=== PATIENT | female | born 1970 | race Hispanic/Latino ===

== ENCOUNTER 2018-08-09 17:23 | Emergency (ER) | payer OTHER ==
[2018-08-09 17:35] VITALS: BP 127/88; PULSE 91; RESP 20; TEMP 98; O2SAT 98
[2018-08-09] MEDS ORDERED: Lidocaine PF 2% (5 ml) Inj (For Cardiac Arrhy) IJ ONE (18:01)
[2018-08-09] MEDS ORDERED: Tdap Vaccine 0.5 ml Vial (10-64 yrs) IM ONE ×2 (18:01→18:17)
[2018-08-09] MEDS ORDERED: Amoxicillin-Clav 875-125 mg Tab PO STA (18:09)
[2018-08-09] MEDS ORDERED: Bacitracin 500 Units/gm Oint Foilpak UD TOP STA (18:34)
--- NOTE | 2018-08-09 18:34 | ED PDOC ---
HPI: Skin/Bite Injury Time Seen by Provider: 08/09/18 17:35 Chief Complaint (Nursing): Bite Chief Complaint (Provider): Bite History Per: Patient History/Exam Limitations: no limitations Onset/Duration Of Symptoms: Mins Current Symptoms Are (Timing): Still Present Additional Complaint(s): Mary Ellen Toure is a 48 year old female with no past medical history who is presenting to the ED for evaluation of facial wound s/p dog bite just prior to arrival. Patient reports that she bent over to pet a strangers dog and it jumped up and bit her. She has the pet owners information, however is refusing to divulge it in fear that something will happen to the dog. Patient sustained a lip laceration and a laceration to left eye orbit. She states that she has not taken any medications prior to arrival and the diamond finishing supervisor of the dog at the scene claimed that the dog was up to date on its vaccinations. PMD: none provided Tetanus: Not UTD - Animal Bite Description Of The Attack: Tried To Pet Animal Description Of The Animal: Unknown (stranger's dog) Animal's Immunization Status: UTD (as per diamond finishing supervisor) Past Medical History Reviewed: Historical Data, Nursing Documentation, Vital Signs Vital Signs: Last Vital Signs Temp 98.0 F 08/09/18 17:31 Pulse 91 08/09/18 17:31 Resp 20 08/09/18 17:31 BP 127/88 08/09/18 17:31 Pulse Ox 98 08/09/18 22:18 - Medical History PMH: No Chronic Diseases - Surgical History Surgical History: Tonsillectomy - Family History Family History: States: Unknown Family Hx - Social History Current smoker - smoking cessation education provided: No Alcohol: None Drugs: Denies - Home Medications Home Medications: Ambulatory Orders Medication Instructions Recorded Amoxicillin/Clavulanate [Augmentin 1 tab PO BID #14 tab 08/09/18 875 MG-125 MG] Bacitracin Ointment [Bacitracin] 1 applic TOP BID #1 tube 08/09/18 Naproxen 500 mg PO BID PRN #20 tab 08/09/18 - Allergies Allergies/Adverse Reactions: Allergies Allergy/AdvReac Type Severity Reaction Status Date / Time No Known Allergies Allergy Verified 08/09/18 17:31 Review of Systems ROS Statement: Except As Marked, All Systems Reviewed And Found Negative Constitutional: Positive for: Other (facial laceration) Eyes: Positive for: Other (laceration to eye orbit) Physical Exam - Reviewed Nursing Documentation Reviewed: Yes Vital Signs Reviewed: Yes - Physical Exam Comments: GENERAL APPEARANCE: Patient is awake, alert, oriented x 3, in no acute distress. She is resting comfortably. SKIN: Warm, dry; (-) cyanosis. EYES: (-) conjunctival pallor, (-) scleral icterus. (+) EOMI and painless, (+) PEERL. (+) mild edema and ecchymosis to inferior aspect of left eye orbit, (+) mild tenderness (+) 1.5cm teardrop shaped laceration to inferior left eye orbit (-) active bleeding (-) crusting (-) mucous discharge. Remainder of facial bones non-tender. (+) full ROM of mandible (-) nasal bridge tenderness ENMT: Mucous membranes moist. (+) 3mm superficial, linear abrasion just inferior to right side of the lower lip (-) vermilion border involvement (-) active bleeding (-) erythema/ warmth/tenderness. Airway patent, (-) stridor. NECK: Supple, FROM (-) tenderness, (-) stiffness, (-) lymphadenopathy. CHEST AND RESPIRATORY: (-) rales, (-) rhonchi, (-) wheezes; breath sounds equal bilaterally. Respirations even and nonlabored. HEART AND CARDIOVASCULAR: (-) irregularity EXTREMITIES: (-) deformity NEURO AND PSYCH: Mental status as above; (-) focal findings (-) facial asymmetry (-) aphasia. Gait: steady. Speech: clear. - ECG O2 Sat by Pulse Oximetry: 98 (RA) Pulse Ox Interpretation: Normal Medical Decision Making Medical Decision Making: Time: 18:01 Impression: dog bite to the face Plan: --Tetanus 0.5 ml IM --Augmentin 1 tab --Lidocaine 5 ml IJ --Tylenol 650 mg PO 1829 Laceration repair performed by Keily CHANG. See procedure note. Educated on wound care. Bacitracin and bandaid applied. Suture removal advised in 5-7 days. 1904 On re-evaluation, patient reports improvement of symptoms. On exam, patient remains AAOx3, in no acute distress. Lungs clear to auscultation, cardiac RRR, repeat neuro exam shows no focal findings. Vitals stable. Lab/Diagnostic results d/w the patient in great detail. Diagnosis of dog bite of face d/w the patient. Based on history, exam and diagnostic results, plan will be for outpatient follow up. Patient instructed to follow-up with pmd / referral provided / the clinic in 1- 2 days without fail. Advised to take medication as prescribed. Return to the emergency room at any time for any new or worsening symptoms. Patient states she fully agrees with and understands discharge instructions. States that she agrees with the plan and disposition. Verbalized and repeated discharge instructions and plan. I have given the patient opportunity to ask any additional questions. Scribe Attestation: Documented by Georgina Germain, acting as a scribe for Nae Michaud PA-C. Provider Scribe Attestation: All medical record entries made by the Scribe were at my direction and personally dictated by me. I have reviewed the chart and agree that the record accurately reflects my personal performance of the history, physical exam, medical decision making, and the department course for this patient. I have also personally directed, reviewed, and agree with the discharge instructions and disposition. Disposition - Clinical Impression Clinical Impression: Dog bite of face - Patient ED Disposition Is Patient to be Admitted: No Counseled Patient/Family Regarding: Studies Performed, Diagnosis, Need For Followup, Rx Given - Disposition Referrals: [facility] [Outside] Disposition: Routine/Home Disposition Time: 19:07 Condition: STABLE Additional Instructions: Suture removal in 5 days. The emergency medical care you received today was directed at your acute symptoms. If you were prescribed any medication, please fill it and take as directed. It may take several days for your symptoms to resolve. Return to the Emergency Department if your symptoms worsen, do not improve, or if you have any other problems. Please contact your doctor in 2 days for re-evaluation and follow up / or call one of the physicians/clinics you have been referred to that are listed on the Patient Visit Information form that is included in your discharge packet. Bring any paperwork you were given at discharge with you along with any medications you are taking to your follow up visit. Our treatment cannot replace ongoing medical care by a primary care provider (PCP) outside of the emergency department. Prescriptions: Amoxicillin/Clavulanate [Augmentin 875 MG-125 MG] 1 tab PO BID #14 tab Bacitracin Ointment [Bacitracin] 1 applic TOP BID #1 tube Naproxen 500 mg PO BID PRN #20 tab PRN Reason: pain/swelling Instructions: Animal and Human Bites, Animal Bites (DC), Wound Care Forms: [employer] (Indonesian) Print Language: ERITREAN - POA Present On Arrival: Falls Or Trauma (dog bite to face) Procedure: Wound Repair - Time Performed Time Performed: 18:30 - Time Out Time Out: Side verified, Site verified, Patient ID confirmed - Procedure Procedure: Wound Repair: Laceration Repair - Consent Obtained Consent obtained: Verbal - Performed by Performed by: Mid-level Provider (Keily CHANG) - Indications Indication(s):: Laceration - Location Location:: Left, Cheek Shape:: Stellate Dimensions Length cm: 1.5 Dimensions width cm: 1 Depth:: Epidermis - Anesthetic Technique Anesthetic Technique: Local Local/Regional Anesthetic:: Lidocaine 2% (1.5mL) - Wound Examination Wound Examination:: Edema, Ecchymosis - Debris Debris:: None - Irrigated Irrigated with ml of normal saline: 100cc - Complexity Complexity:: Simple (one layer) - Wound repair method Sutures:: # (3), Size (5-0 prolene) - Complications Complications: None. Bacitracin and bandaid applied. - Patient tolerated procedure Patient Tolerated Procedure:: Well
== END 2018-08-09 19:12 | disposition home or self-care (01) ==
LOC: H.ER 17:23
DX: S01.412A Laceration without foreign body of left cheek and temporomandibular area, initial encounter (principal); W54.0XXA Bitten by dog, initial encounter; Z23 Encounter for immunization